=== PATIENT | female | born 1965 | race Caucasian/White ===

== ENCOUNTER 2018-03-30 12:41 | Inpatient (IN) ==
[2018-03-30] MEDS ORDERED: Ethanol\\Acetic Acid\\Na Ace\\Ben 1,000 ML IRRIG.SOLN IR ONE (12:54)
--- NOTE | 2018-03-30 13:12 | Anesthesia Evaluation PreOp ---
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 History: TIA (09/2017) Other Medical History: Diabetes Type II, Other (obesity BMI 43) Anesthesia History: No Prior Anesthetic Complications, Past Anesthesia (GB, Appy ,T&A, CTR, Partial Hyst) : No Alcohol Use: none Drug use: none Medications and Allergies 3 Allergy/AdvReac Type Severity Reaction Status Date / Time Hydromorphone [From Dilaudid] Allergy Difficulty Verified 03/30/18 13:14 Breathing promethazine [From Phenergan] AdvReac Seizure Verified 03/30/18 13:14 [id number] Reductase AdvReac Cramping Verified 03/30/18 13:14 Inhibitor of the [Statins] Muscles - Meds/Allergy Pre-op Review Medications Reviewed: Yes Allergies Reviewed: Yes Anesthesia Results - Labs Laboratory Tests 03/02/18 03/02/18 03/20/18 12:35 12:35 14:31 WBC Hgb Hct Plt Count PT 11.2 INR 1.0 APTT 32.7 Sodium 138 Potassium 4.4 Chloride 105 Carbon Dioxide 26 BUN 14 Creatinine 0.66 Est GFR (Non-Af Amer) > 60 Hemoglobin A1c 8.3 H 03/20/18 14:31 WBC 7.9 Hgb 12.3 Hct 38.0 Plt Count 242 PT INR APTT Sodium Potassium Chloride Carbon Dioxide BUN Creatinine Est GFR (Non-Af Amer) Hemoglobin A1c - Imaging EKG: report reviewed, image reviewed Additional studies: Echo 09/2017 Impressions: LVEF 60%. Normal LV chamber size and function. Mild concentric left ventricular hypertrophy. Moderate left ventricular diastolic dysfunction. Normal right ventricular structure and function. Unable to estimate RVSP due to lack of TR jet. No significant valvular dysfunction Anesthesia Exam Vital Signs/O2 Sat/Glucose, Most Recent Temp Pulse Resp BP Pulse Ox 98.4 F 66 18 124/79 96 03/30/18 12:59 03/30/18 12:59 03/30/18 12:59 03/30/18 12:59 03/30/18 12:59 Blood Glucose* 139 Height: 1.73 Weight: 130 kg NPO (# of Hours): > 8 hrs - HEENT Pupil (Motor): Pupils equal Mallampati: II Teeth: Normal Oral Opening: Greater than 3 - PLATE GLASS GRINDER PLATE GLASS GRINDER Motor: Normal RUE, Normal LUE, Normal RLE, Normal LLE, Normal Face PLATE GLASS GRINDER Sensory: Normal: RUE, LUE, RLE, LLE, Face - Cardiac Rhythm: Regular Murmur: None - Pulmonary Breath Sounds: bilateral Clear Respiratory Effort: Symmetrical Anesthesia Assess/Plan ASA Score: 3 Modified [place] Scale for Level of Consciousness: Cooperative, oriented, and tranquil Anesthetic Plan: Regional (spinal and adductor canal block), MAC Monitoring Plan: Standard Monitors Recovery Plan: PACU
[2018-03-30] MEDS ORDERED: CeFAZolin Syr 3,000MG/30 ML 3,000 MG/30 ML SYRINGE IVPB ONE (13:13)
[2018-03-30] MEDS ORDERED: Ringers Solution, Lactated 1,000 ML IVC SCH (13:15)
[2018-03-30] MEDS ORDERED: Lidocaine -MPF 1% 2 ML VIAL ID ONE (13:18)
[2018-03-30] MEDS ORDERED: Famotidine 20 MG/2 ML VIAL IVP ONE (13:22)
[2018-03-30] MEDS ORDERED: Acetaminophen IV 1,000 MG/100 ML INFUS..BTL IVPB ONE (13:22)
[2018-03-30] MEDS ORDERED: LIDOCAINE 1% PF 2 ML AMPUL ONE (13:23)
[2018-03-30] MEDS ORDERED: ROPIVACAINE HCL/PF 0.5% 30 ML VIAL ONE (13:34)
[2018-03-30] MEDS ORDERED: Bupivacaine/Clonidine Syringe 1 EACH SYRINGE ONE (13:34)
[2018-03-30] MEDS ORDERED: Morphine Sulfate/PF 5mg/10mL Vial ONE (13:35)
[2018-03-30] MEDS ORDERED: *HR* FentaNYL (PF) 100 MCG/2 ML VIAL ONE (13:41)
[2018-03-30] MEDS ORDERED: *HR* Midazolam HCl 2 MG/2 ML VIAL ONE (13:41)
[2018-03-30] MEDS ORDERED: *HR* Propofol 200 MG/20 ML VIAL IVP ONE (13:42)
[2018-03-30] MEDS ORDERED: Propofol 500 MG/50 ML INFUS..BTL ONE ×2 (13:42→15:41)
[2018-03-30] MEDS ORDERED: Dexamethasone 4 MG/ML VIAL ONE (14:03)
[2018-03-30] MEDS ORDERED: Ondansetron 4 MG/2 ML VIAL ONE (14:03)
--- NOTE | 2018-03-30 14:06 | History & Physical Report ---
Date of Encounter: 03/30/18 Time of Encounter: 14:05 24 Hour HP Update - Instructions Instructions: If the History and Physical is less than 30 days old and was completed prior to A.M. admission and or procedure and has NOT been updated on calendar day of procedure please complete this update prior to performing procedure. - Update Patient reports changes in Medical Condition: No Changes in examination, assessment, or condition: No Changes in Medication: No Preop tests/diagnostics Reviewed: Yes Surgery Remains Indicated: Yes Consent for Planned Operative Procedure(s) Verified: Yes - Pre-Operative Checklist Preoperative Checklist Indicated: No Prophylactic Antibiotic Ordered: Yes Is VTE Prophylaxis Indicated?: Yes
[2018-03-30] MEDS ORDERED: Lidocaine -MPF 1% 5 ML AMPUL ONE ×2 (14:19→14:32)
[2018-03-30] MEDS ORDERED: EPHEDrine 50 MG/ML VIAL ONE (15:04)
--- NOTE | 2018-03-30 15:32 | Anesthesia Procedures ---
Date of Encounter: 03/30/18 Time of Encounter: 14:09 Procedures: Anesthesia - Epidural/Spinal Patient examined: Yes Consent Obtained: Yes Supplemental Oxygen: Nasal Cannula Supplemental Oxygen Rate (L/min): 2 Sedation: Versed (mg): 2 Sedation: Fentanyl (mcg): 50 Site Prep: Aseptic Technique, Sterile prep and drape, Povidone-Iodine 1% Patient position: upright Local Anesthetic: Lidocaine 1% Amount of Local Anesthetic used: 6 Interspace Used: L3-L4 Blood: No CSF: Yes Paresthesia: No Spinal Needle Gauge: 22 Spinal Dose: 3ml of 0.5% Bupivacaine with NaCl Procedure: Spinal completed via sterile technique. 2 attempts noted. First attempt was at L4-L5, 3ml of 1% lidocaine used for local. Unable to access subarachnoid space. Second attempt was at L3-L4 with clear CSF noted. Aspiration negative for heme x3 during administration. Administration of 3ml of 0.5% PF Bupivicaine with NaCl in addition to 200mcg of duramorph into subarachnoid space. Pt tolerateed without difficulty. Vitals + FHT's: Vital Signs/O2 Sat/Glucose, Most Recent Temp Pulse Resp BP Pulse Ox 98.4 F 59 16 96/54 96 03/30/18 14:15 03/30/18 14:38 03/30/18 14:38 03/30/18 14:38 03/30/18 14:38 Blood Glucose* 139 - Nerve Block Procedure Date: 03/30/18 Time: 14:39 Allergies/Adv Reactions: Refer to Allergy list. Surgical Procedure: R Total Knee Arthroplasty Checklist: Correct Patient Identifier, Correct procedure, History checked Correct side: Right Blood Thinner: No Monitor Applied: EKG, BP, Pulse Oximetry Supplemental Oxygen via Nasal Cannula (L/min): 2 Sedation: Fentanyl (mcg): 50 Indication: Post Op Analgesia Pre-op Neuro Deficits: No Block Type: Other (Adductor Canal and IPACK Block) Catheter placed: No Sterile Technique: Yes Ultrasound used: Yes Anatomy identified: Yes Visual spread of Local: Yes Neuro Stimulation: No Blood on Needle Aspiration: No Smooth Injection of Local: Yes Pain with Injection of Local: No Prep: Chlorhexadine Needle: 21 x 100 mm Stimuplex Local: 0.25% Bupivicaine w/Clonidine 20 mcg/cc (20 ml administered for IPACK Block), Ropivacaine (20ml of 0.5% Ropivacaine administered with 8mg decadron for adductor canal block) Volume (cc): See above. Number of Attempts: 1 Complications: None/effective block Vitals: Vital Signs/O2 Sat/Glucose, Most Recent Temp Pulse Resp BP Pulse Ox 98.4 F 59 16 96/54 96 03/30/18 14:15 03/30/18 14:38 03/30/18 14:38 03/30/18 14:38 03/30/18 14:38 Blood Glucose* 139
[2018-03-30] MEDS ORDERED: *HR* Morphine 2 MG/ML SYRINGE IVP PRN (15:41)
[2018-03-30] MEDS ORDERED: Naloxone 0.4 MG/ML INJ IVP PRN ×2 (15:41→17:28)
[2018-03-30] MEDS ORDERED: Ondansetron 4 MG/2 ML VIAL IVP PRN ×2 (15:41→17:28)
--- NOTE | 2018-03-30 16:19 | Orthopedic Operative Note ---
Date of procedure: 03/30/18 Pre-op diagnosis: Right knee arthritis Post-op diagnosis: same Procedure: Procedure: Right robotic-assisted Total knee replacement Estimated blood loss: 200 cc Hardware: Metal and polyethylene replacement. [place] Femur: 4 Tibia: 4 PS insert: 11 Patella: 36 Exam Under anesthesia: 2 degree hyperextension 3 degree varus as calculated by the robot full flexion and no instability Procedural Notes: Grade 3 arthritic changes all 3 compartments. Operative procedure: The patient was brought to the operating room and placed on the operating room table. After general anesthesia was administered the operative knee was examined. Findings were noted in the exam under anesthesia. The operative extremity was prepped and draped in sterile surgical fashion. The patient received IV antibiotics prior to skin incision. A standard midline incision was made centered over the patella. The incision was made through the skin and subcutaneous tissue. A medial parapatellar tendon approach was performed. Care was taken to preserve tissue along the medial aspect of the patella. And to protect the patella tendon. The deep MCL was released off the medial tibia. The infra patella fat pad was excised. The patella was everted and cut was made at the level of the insertion of the quadriceps and patella tendon. The patella was sized to a 36 the guide was seated and the lug holes are drilled. Knee was brought into flexion. Patient noted to have Steinmann pins were placed in the tibia and the femur for the tibial and femoral arrays respectively. Checkpoints were also placed in the tibia and the femur for calculation purposes. The knee including the femur and the tibial registered. Osteophytes, ACL and PCL were excised at this point. Extension and flexion were assessed with a valgus stress components were adjusted on the computer to balance the knee. Femoral cuts were made first with robotic assistance, these included the anterior cut posterior cuts chamfer cuts. Tibial cut was then performed with robotic assistance as well. Bone fragments were removed, as well as the medial and lateral meniscus. The size 4 femoral guide was seated box cut was made lug holes are drilled. The size 4 tibial tray was seated and prepared with the fin cutter. Trial reduction with the 11 T Ilana revealed extension of 0 degree and 1 degree varus full flexion. No varus valgus instability. Trial reduction revealed excellent patella tracking. All trial components were removed all bony surfaces were irrigated. The Tibia was seated followed by the femur, The Ilana size 11 was seated and secured patella. Patient had similar findings for motion and stability. The knee was then irrigated out with 2 L of pulse irrigation. The extensor mechanism was closed with #2 FiberWire suture and #2 PDS suture. The subcutaneous tissue was then irrigated and closed deep with #1 PDS suture superficially with 0 PDS suture and skin was closed with zip tie The patient was then placed in a sterile dressing and a postoperative brace extubated and transferred to recovery room in stable condition. Anesthesia: GETA Surgeon: Fredrick Cruz Was there an miller head assistant wet process present: No Estimated blood loss (cc): 200 Condition: stable Disposition: PACU
--- NOTE | 2018-03-30 16:59 | Anesthesia Evaluation Post Op ---
Date of Encounter: 03/30/18 Time of Encounter: 16:55 - Vital Signs Vital Signs: Vital Signs - Last 8 Hours Temp Pulse Resp BP Pulse Ox 03/30/18 16:54 97.6 F 61 14 93/58 91 03/30/18 16:44 60 14 102/56 90 03/30/18 16:34 61 16 92/57 94 03/30/18 16:24 97.4 F L 64 16 93/60 95 03/30/18 14:38 59 16 96/54 96 03/30/18 14:28 92 16 112/67 03/30/18 14:15 98.4 F 66 18 124/79 96 03/30/18 14:10 60 16 120/84 97 03/30/18 12:59 98.4 F 66 18 124/79 96 Intake and Output 03/30/18 03/30/18 03/30/18 07:59 15:59 23:59 Output Total 200 / 200 Balance -200 / -200 Output: Estimated Blood Loss 200 / 200 Other: Weight 130.635 kg Blood Glucose* 139 136 Patient Weight 03/30/18 23:59 Weight 130.635 kg - Lungs Lungs: Clear Ascult./Percussion - Airway Airway: Non-obstructed - Cardiovascular Regular Rate, Baseline Rhythm - Mental Status Mental Status: Alert & Oriented, Answers Appropriately - Pain Pain Scale: 0 Pain Scale used: Numeric (1 - 10) - Nausea Vomiting Nausea Vomiting: Not Present - Hydration Hydration: Tolerates oral liquids, Ice chips - Discharge PostOp Status: Transfer Patient to floor
--- NOTE | 2018-03-30 17:01 | Physician Discharge Referral ---
<Jacqui Sabillon L - Last Filed: 03/30/18 16:59> Home Health/Hosp Referral Info Transfer to: Home Health Attending Provider: Provider in Charge Post Discharge: PCP - Diagnosis (1) Status post total knee replacement, right Priority: Primary Status: Acute (2) Arthritis of knee, right Priority: Primary Status: Acute (3) DMII (diabetes mellitus, type 2) Priority: Secondary Status: Chronic (4) HTN (hypertension) Priority: Secondary Status: Chronic (5) CAD (coronary artery disease) Priority: Secondary Status: Chronic (6) Asthma Priority: Secondary Status: Chronic (7) History of TIA (transient ischemic attack) Priority: Secondary Status: Chronic (8) SUSANA on CPAP Priority: Secondary Status: Chronic (9) Obesity Priority: Secondary Status: Chronic - Respiratory Orders None Smoking Cessation: Smoking cessation has been advised. For more information, call the [place] Tobacco Quit Line at 9-347-QQMX-NOW. - Diet/Nutrition Diet/Nutrition Orders: Regular - Activity Activity Orders: Up ad jacqueline, Ambulate - Services Needed Following services are medically necessary services: Nursing, Home Health Aide, Physical Therapy, Occupational Therapy Home Care Orders: Opsite dressing, leave intact until first post-operative visit. If dressing becomes >50% saturated, contact office, remove dressing and place appropriate dressing in its place. Do not allow for dressing to get wet. Zipline/[place] in place, plan to remove at post-operative day #14-16. Total Joint Precautions x 6 weeks Apply cold therapy wrap 3-6x/day for 20 minutes at a time. Encourage ambulation throughout the day Use Incentive spirometer 10x/hour. Elevate affected extremity above heart as tolerated. Brace: Wear knee immobilizer at night x 2 weeks.~ - Transfer Medications Home Medications: Aspirin 325 mg PO DAILY 03/30/18 [History] Aspirin Enteric Coated [Aspirin EC] 325 mg PO BID #20 tablet. 03/30/18 [Rx] Bumetanide [Bumex] 1 mg PO DAILY PRN 03/30/18 [History] Cyclobenzaprine [Flexeril] 10 mg PO TID PRN 03/30/18 [History] Escitalopram [Lexapro] 20 mg PO HS 03/30/18 [History] Fluticasone/Vilanterol [Breo Ellipta 200-25 Mcg INH] 1 puff IH DAILY PRN [History] Gabapentin [Neurontin] 1,200 mg PO TID 03/30/18 [History] GlipiZIDE [Glipizide Xl] 5 mg PO DAILY 03/30/18 [History] Ibuprofen [Motrin] 800 mg PO Q8HR PRN 03/30/18 [History] Ipratropium/Albuterol Neb [Duoneb] 3 ml IH Q6HR PRN 03/30/18 [History] Ipratropium/Albuterol Sulfate [Combivent Respimat Inhal [place]] 1 puff IH QID PRN 03/30/18 [History] Losartan Potassium [Cozaar] 100 mg PO DAILY 03/30/18 [History] Metformin HCl [Glucophage] 1,000 mg PO BID 03/30/18 [History] Metoprolol Tartrate [Lopressor] 50 mg PO BID 03/30/18 [History] Modafinil [Provigil] 200 mg PO QAM 03/30/18 [History] NIFEdipine [Nifedipine ER] 30 mg PO DAILY 03/30/18 [History] OxyCODONE Immed Rel [Roxicodone 5 MG] 5 mg PO Q6HR PRN 7 Days #28 tablet [Rx] Rosuvastatin Calcium [Crestor] 10 mg PO HS 03/30/18 [History] cloNIDine HCl [CloNIDine HCl] 0.1 mg PO BID 03/30/18 [History] Allergies/Adverse Reactions: 3 Allergy/AdvReac Type Severity Reaction Status Date / Time Hydromorphone [From Dilaudid] Allergy Difficulty Verified 03/30/18 13:14 Breathing promethazine [From Phenergan] AdvReac Seizure Verified 03/30/18 13:14 Lomtixa-Omg-Fkc Reductase AdvReac Cramping Verified 03/30/18 13:14 Inhibitor of the [Statins] Muscles Certification: Further, I certify that my clinical findings support that this patient is homebound (i.e. absences from home require considerable and taxing effort and are for medical reasons or cheondoism services or infrequently or short duration when for other reasons) because: Homebound Reason: Post-surgery restriction and or conditions limit ability to leave home Attestation: My signature below is to certify that this patient is under my care and that I, or nurse practitioner, or a physician's speech language pathology assistant working with me, has a face-to -face encounter with this patient. <Fredrick Cruz - Last Filed: 03/31/18 06:51> - Respiratory Orders Smoking Cessation: Smoking cessation has been advised. For more information, call the [place] Tobacco Quit Line at 9-587-EBHZ-NOW. Certification: Further, I certify that my clinical findings support that this patient is homebound (i.e. absences from home require considerable and taxing effort and are for medical reasons or cheondoism services or infrequently or short duration when for other reasons) because: Attestation: My signature below is to certify that this patient is under my care and that I, or nurse practitioner, or a physician's speech language pathology assistant working with me, has a face-to -face encounter with this patient.
[2018-03-30] MEDS ORDERED: Dextrose Gel 15 GM/37.5 ML TUBE PO PRN ×2 (17:28)
[2018-03-30] MEDS ORDERED: MOM Conc 10 ML UD.LIQ PO PRN (17:28)
[2018-03-30] MEDS ORDERED: (Ipratropium/Albuterol Sulfate [Combivent Respimat 20 IH PRN (17:28)
[2018-03-30] MEDS ORDERED: traMADol 50 MG TABLET PO PRN (17:28)
[2018-03-30] MEDS ORDERED: Bumetanide 1 MG TABLET PO PRN (17:28)
[2018-03-30] MEDS ORDERED: Sennosides 8.6 MG TABLET PO PRN (17:28)
[2018-03-30] MEDS ORDERED: Ipratropium/Albuterol Neb 3 ML IH PRN (17:28)
[2018-03-30] MEDS ORDERED: D5% in Water 1,000 ML IVC PRN (17:28)
[2018-03-30] MEDS ORDERED: Temazepam 15 MG CAPSULE PO PRN (17:28)
[2018-03-30] MEDS ORDERED: CeFAZolin Syr 3,000MG/30 ML 3,000 MG/30 ML SYRINGE IVPB SCH (17:28)
[2018-03-30] MEDS ORDERED: *HR* Dextrose 50 % in Water (Syg) 50 ML SYRINGE IVP PRN (17:28)
[2018-03-30] MEDS ORDERED: (Fluticasone/Vilanterol [Breo Ellipta 200-25 Mcg Inh] IH PRN (17:28)
[2018-03-30 17:30] LABS: Hematocrit 32.2 % (35.3-44.9); Hemoglobin 10.2 g/dL (11.5-15.4)
[2018-03-30] MEDS ORDERED: *HR* Enoxaparin 30 MG/0.3 ML SYRINGE SQ SCH (18:00)
[2018-03-30] MEDS: Gabapentin 400 MG CAPSULE PO SCH ×2 (18:57→19:31)
[2018-03-30] MEDS: *HR* Enoxaparin 30 MG/0.3 ML SYRINGE SQ SCH (19:23)
[2018-03-30] MEDS: *HR* Metformin 500 MG TABLET PO SCH (19:31)
[2018-03-30] MEDS: *HR* OxyCODONE Immed Rel 5 MG TABLET PO PRN (21:26)
[2018-03-30] MEDS: cloNIDine HCl 0.1 MG TABLET PO SCH (21:26)
[2018-03-30] MEDS: Insulin LISPRO 300 UNITS/3 ML VIAL SQ SCH (21:50)
[2018-03-30] MEDS: *HR* OxyCODONE/APAP 5/325 TABLET PO PRN (22:47)
[2018-03-30] MEDS: CeFAZolin Syr 3,000MG/30 ML 3,000 MG/30 ML SYRINGE IVPB SCH (22:48)
[2018-03-31] MEDS: *HR* OxyCODONE Immed Rel 5 MG TABLET PO PRN ×5 (01:39→23:52)
[2018-03-31] MEDS: Insulin LISPRO 300 UNITS/3 ML VIAL SQ SCH ×5 (03:30→20:48)
[2018-03-31] MEDS: *HR* OxyCODONE/APAP 5/325 TABLET PO PRN ×4 (03:59→20:47)
[2018-03-31 04:39] LABS: Hematocrit 31.4 % (35.3-44.9); Hemoglobin 9.8 g/dL (11.5-15.4)
[2018-03-31 05:05] LABS: BUN/Creatinine Ratio 25 (6-26); Blood Urea Nitrogen 21 mg/dL (6-20); Calcium 8.9 mg/dL (8.6-10.3); Carbon Dioxide 25 mEq/L (23-29); Chloride 101 mEq/L (98-107); Glucose 203 mg/dL (70-105); Osmolality,Calculated 289 (280-300); Potassium 4.6 mEq/L (3.5-5.1); Sodium 135 mEq/L (136-145); eGFR For African Americans > 60 (> 60); eGFR For Non-African Americans > 60 (> 60)
[2018-03-31] MEDS: *HR* Enoxaparin 30 MG/0.3 ML SYRINGE SQ SCH ×2 (05:39→17:18)
[2018-03-31] MEDS: CeFAZolin Syr 3,000MG/30 ML 3,000 MG/30 ML SYRINGE IVPB SCH (06:52)
--- NOTE | 2018-03-31 06:52 | Orthopedics Progress Note ---
Date of Encounter: 03/31/18 Time of Encounter: 06:51 Subjective Interval history: Patient was seen this morning doing well complains of knee pain. Afebrile vital signs stable. Operative extremity: Neurovascularly intact Dressing clean dry and intact Calves nontender Assessment and plan: Continue with postoperative care Hemoglobin 9.8 we will discharge today with pain under control. Objective Vital signs: Vital Signs Temp Pulse Resp BP Pulse Ox 03/31/18 06:43 98.4 F 68 18 159/83 96 03/31/18 03:46 98.9 F 84 17 146/77 94 03/30/18 23:23 98.6 F 86 16 121/75 93 03/30/18 20:40 98.8 F 81 18 116/70 97 03/30/18 19:41 97.8 F 76 15 123/73 95 03/30/18 18:44 97.7 F 79 16 112/71 92 03/30/18 18:04 97.6 F 54 16 102/66 91 03/30/18 17:40 97.4 F L 58 16 105/57 91 03/30/18 17:04 97.6 F 62 14 106/58 93 03/30/18 16:54 97.6 F 61 14 93/58 91 03/30/18 16:44 60 14 102/56 90 03/30/18 16:34 61 16 92/57 94 03/30/18 16:24 97.4 F L 64 16 93/60 95 03/30/18 14:38 59 16 96/54 96 03/30/18 14:28 92 16 112/67 03/30/18 14:15 98.4 F 66 18 124/79 96 03/30/18 14:10 60 16 120/84 97 03/30/18 12:59 98.4 F 66 18 124/79 96 Intake and Output 03/30/18 03/30/18 03/31/18 15:59 23:59 07:59 Intake Total 350 / 350 600 / 600 Output Total 200 / 200 Balance 150 / 150 600 / 600 Intake: Oral 350 / 350 600 / 600 Output: Estimated Blood Loss 200 / 200 Other: # Voids 2 1 Weight 130.635 kg Blood Glucose* 139 260 159 - Labs CBC & BMP: 03/31/18 04:20 03/31/18 04:20 Labs: Abnormal lab results Hgb 9.8 g/dL (11.5-15.4) L 03/31/18 04:20 Hct 31.4 % (35.3-44.9) L 03/31/18 04:20 Sodium 135 mEq/L (136-145) L 03/31/18 04:20 BUN 21 mg/dL (6-20) H 03/31/18 04:20 Glucose 203 mg/dL (70-105) H 03/31/18 04:20 POC Glucose 139 mg/dL (70-99) H 03/30/18 12:57 - VTE Documentation of Mechanical Device: Venous foot pump, device Consult Discharge Plan - Plan Referrals: Josee Bledsoe, [employer] SYSTEM INSTALLER [Primary Care Provider] -
[2018-03-31] MEDS: *HR* Metformin 500 MG TABLET PO SCH ×2 (07:51→17:04)
[2018-03-31] MEDS: NIFEdipine XL (24 HR) 30 MG TAB.ER.24 PO SCH (07:51)
[2018-03-31] MEDS: Aspirin 325 MG TABLET PO SCH (07:51)
[2018-03-31] MEDS: *HR* GlipiZIDE XL (24 HR) 2.5 MG TABLET PO SCH (07:52)
[2018-03-31] MEDS: cloNIDine HCl 0.1 MG TABLET PO SCH ×2 (07:53→20:47)
[2018-03-31] MEDS: Gabapentin 400 MG CAPSULE PO SCH ×3 (07:53→20:47)
[2018-03-31] MEDS: Acetaminophen IV 1,000 MG/100 ML INFUS..BTL IVPB SCH ×4 (08:04→23:37)
[2018-03-31] MEDS: Ringers Solution, Lactated 1,000 ML IVC SCH (10:53)
--- NOTE | 2018-03-31 11:55 | Event Note ---
Date of Encounter: 03/31/18 Time of Encounter: 11:54 PCR - POD#1 - Right TKR 03/30 - REBEKAH PLACED She has significant skin breakdown and abrasions - underlying psoriasis. she has bactroban at home. Patient seen at bedside, without complaints. A&O x 3 Afebrile, vital signs stable. Labs reviewed. H/H - 9.8 - stable, asymptomatic 03/31: Sodium 135 Pain control: adequate but patient voices concerns for discharge - discussed in depth. Educated that if she needs to she can take 2 tablets q 6 hours of oxycodone for firt 12-24 hours while at home. Participating in PT. All questions and concerns addressed. Educated on use of incentive spirometer. Encouraged ambulation and proper hydration. Patient educated on post-operative restrictions and post-operative care. Assessment and plan: Continue with postoperative care Pain discussed - flexeril added, lidoderm will be added if needed Discharge plan: Home, discharge 04/01 with HH. .
--- NOTE | 2018-03-31 12:24 | Discharge Summary ---
Orders not resulted at time of discharge: Pending orders 03/30/18 13:22 US anesthesia pain block [US] Routine 03/30/18 15:20 Culture,Anaerobic [RM] Routine Culture,Wound [RM] Routine 03/30/18 15:37 Surgical Pathology [PTH] Routine 04/01/18 04:00 Basic Metabolic Panel AM 0400 Hemoglobin and Hematocrit [HEME] AM 0400 Date of Encounter: 04/03/18 Time of Encounter: 12:21 - Discharge Diagnosis (1) Status post total knee replacement, right Priority: Primary Status: Acute (2) Arthritis of knee, right Priority: Primary Status: Acute (3) DMII (diabetes mellitus, type 2) Priority: Secondary Status: Chronic Qualifiers: Diabetes mellitus long term care pharmacist insulin use: unspecified long term care pharmacist insulin use status Diabetes mellitus complication status: without complication Qualified Code(s): E11.9 - Type 2 diabetes mellitus without complications (4) HTN (hypertension) Priority: Secondary Status: Chronic Qualifiers: Hypertension type: essential hypertension Qualified Code(s): I10 - Essential (primary) hypertension (5) CAD (coronary artery disease) Priority: Secondary Status: Chronic Qualifiers: Coronary Disease-Associated Artery/Lesion type: unspecified vessel or lesion type [place] vs. transplanted heart: [place] heart Associated angina: without angina Qualified Code(s): I25.10 - Atherosclerotic heart disease of [place] coronary artery without angina pectoris (6) Asthma Priority: Secondary Status: Chronic Qualifiers: Asthma severity: unspecified severity Asthma persistence: unspecified Asthma complication type: uncomplicated Qualified Code(s): J45.909 - Unspecified asthma, uncomplicated (7) History of TIA (transient ischemic attack) Priority: Secondary Status: Chronic (8) SUSANA on CPAP Priority: Secondary Status: Chronic (9) Obesity Priority: Secondary Status: Chronic Qualifiers: Obesity type: due to excess calories Obesity classification: adult class 3 (BMI >= 40) Serious obesity comorbidity presence: without serious comorbidity Body mass index: BMI 40.0-44.9 Qualified Code(s): E66.01 - Morbid (severe) obesity due to excess calories; Z68.41 - Body mass index (BMI) 40.0-44.9, adult (10) Acute blood loss anemia Priority: Secondary Status: Acute Comments: H/H 04/01: 9.5/ - Stable. Asymptomatic. - Hospital Course Hospital course: Ms. Syed is a 52 year old female. Patient was POD#2 - Right TKR. She has an uneventful post-operative course. She was discharged in stable condition, back to baseline. - Time Spent with Patient Total time spent providing and/or coordinating discharge services: Less than 30 minutes - Discharge Medications Home Medications: Aspirin Enteric Coated [Aspirin EC] 325 mg PO BID #20 tablet. 03/30/18 [Rx] Bumetanide [Bumex] 1 mg PO DAILY PRN 03/30/18 [History] Cyclobenzaprine [Flexeril] 10 mg PO TID PRN 03/30/18 [History] Escitalopram [Lexapro] 20 mg PO HS 03/30/18 [History] Fluticasone/Vilanterol [Breo Ellipta 200-25 Mcg INH] 1 puff IH DAILY PRN [History] Gabapentin [Neurontin] 1,200 mg PO TID 03/30/18 [History] GlipiZIDE [Glipizide Xl] 5 mg PO DAILY 03/30/18 [History] Ibuprofen [Motrin] 800 mg PO Q8HR PRN 03/30/18 [History] Ipratropium/Albuterol Neb [Duoneb] 3 ml IH Q6HR PRN 03/30/18 [History] Ipratropium/Albuterol Sulfate [Combivent Respimat 20-100 Mcg] 1 puff IH QID PRN 03/30/18 [History] Losartan Potassium [Cozaar] 100 mg PO DAILY 03/30/18 [History] Metformin HCl [Glucophage] 1,000 mg PO BID 03/30/18 [History] Metoprolol Tartrate [Lopressor] 50 mg PO BID 03/30/18 [History] Modafinil [Provigil] 200 mg PO QAM 03/30/18 [History] NIFEdipine [Nifedipine ER] 30 mg PO DAILY 03/30/18 [History] OxyCODONE Immed Rel [Roxicodone 5 MG] 5 mg PO Q6HR PRN 7 Days #28 tablet [Rx] Rosuvastatin Calcium [Crestor] 10 mg PO HS 03/30/18 [History] cloNIDine HCl [CloNIDine HCl] 0.1 mg PO BID 03/30/18 [History] Allergies/Adverse Reactions: 3 Allergy/AdvReac Type Severity Reaction Status Date / Time Hydromorphone [From Dilaudid] Allergy Difficulty Verified 03/30/18 13:14 Breathing promethazine [From Phenergan] AdvReac Seizure Verified 03/30/18 13:14 Jxoxnsu-Dkd-Amp Reductase AdvReac Cramping Verified 03/30/18 13:14 Inhibitor of the [Statins] Muscles Date of admission: 03/30/18 18:12 Primary care physician: Josee Bledsoe CNP Consults: 03/30/18 17:28 Consult to Occupational Therapy [CONS] Routine Comment: Evaluate, develop and implement POC Reason for Consult: post knee surgery Does patient have active BEDREST order?: No Is patient medically & hemodynamically stable?: Yes Consult to Orthopedic Navigator [CONS] [CONS] Routine Consult to Physical Therapy [CONS] Routine Comment: Evaluate, develop and impliment POC Reason for Consult: post knee surgery Does patient have active BEDREST order?: No Is patient medically & hemodynamically stable?: Yes Consult to Public Works Inspector [CONS] Routine Reason for SW Consult: post op joint replacement RT Post Op Consult [CONS] Routine Anticipated date of discharge: 03/31/18 (04/01 pending pain) - VTE Documentation of Mechanical Device: Venous foot pump, device Labs on day of discharge: Labs from last 24 hours 03/31/18 03/31/18 03/30/18 04:20 04:20 17:09 Hgb 9.8 L 10.2 L Hct 31.4 L 32.2 L Sodium 135 L Potassium 4.6 Chloride 101 Carbon Dioxide 25 BUN 21 H Creatinine 0.83 Est GFR ( Amer) > 60 Est GFR (Non-Af Amer) > 60 BUN/Creatinine Ratio 25 Glucose 203 H POC Glucose Calculated Osmolality 289 Calcium 8.9 03/30/18 12:57 Hgb Hct Sodium Potassium Chloride Carbon Dioxide BUN Creatinine Est GFR ( Amer) Est GFR (Non-Af Amer) BUN/Creatinine Ratio Glucose POC Glucose 139 H Calculated Osmolality Calcium - Impressions ITS Impressions Knee X-Ray 03/30/18 12:58 IMPRESSION: 1. Status post total right knee arthroplasty. 2. No hardware failure or fracture. 3. No unexpected retained radiopaque foreign body. 4. Diffuse edema about the knee. Overlying surgical skin closure nhi. D/ / Mejia Dawson / Mejia Dawson Interpreting Provider: Mejia Dawson - Patient Status Disposition: Home Health Service Condition: Good Functional capacity at discharge: uses cane/walker Overall status at discharge: patient is back to baseline - Discharge Instructions Instructions: Asthma (DC), Total Knee Replacement (DC), Diabetes Mellitus Type 2 in Adults (DC), Chronic Hypertension (DC) Follow Up With: Fredrick Cruz MD [Partnered Physician] - 04/06/18 1:15 pm (You will be seeing Jacqui Burak this visit.) Josee Bledsoe CNP [Primary Care Provider] - Additional Instructions: Discharge Instructions: Total Knee Replacement Please call [facility] ([phone]), your Primary Care Physician, or report to the Emergency Room if you have any of the following symptoms: Nausea, vomiting, fever greater that 101.5, swelling, chest pain, shortness of breath, increased pain/redness/drainage/odor for your incision site, numbness/ tingling, or any other concerning symptoms. ACTIVITY:Weight-bearing as tolerated. You may progress off support (crutches or walker) as tolerated. MEDICATIONS: Upon discharge resume your home medications. Take all the medications as prescribed. Take a stool softener if taking narcotic pain medications. Stool softeners are only effective if you drink enough fluids. Drink 6-8 glass of water or fluids a day, unless this is not allowed for another health problem. Despite using stool softeners, if you haven't had a bowel movement in 3 days, please switch to a gentle laxative. Gentle laxatives are sold over the counter. You should have a bowel movement within 24 hours, if not call the office. You will be discharged from the hospital with a prescription for pain medication. You are encouraged to decrease the use of narcotic pain medication as tolerated. Should you require a refill, please call the office. [facility] prescribes narcotic pain medication for only 4-6 weeks after surgery. If you require pain medication beyond this time period, you may be referred to your Primary Care Physician or to the Pain Clinic for further evaluation. Plan ahead for refills on pain medication as many narcotics either need to be picked up at the office or mailed. It is best to call 48-72 hours in advance of needing a prescription refill so you don't run out of medication. To help control the post-operative pain, you may take NSAIDs (Aleve,Advil, Motrin, Ibuprofen, Naprosyn) or Tylenol as prescribed on the bottle in addition to the pain medication. ANTICOAGULATION (blood thinners): Continue your Aspirin, Lovenox or Coumadin as prescribed to help prevent a blood clot in the leg or in the lungs. As long as your incision remains dry and you tolerate the NSAIDs (Aleve, Advil, Motrin, ibuprofen, naprosyn), it is OK to use the NSAIDS while you are taking your anticoagulation medication. Should your incision start to drain, stop the NSAID and contact our office. Common symptoms of blood clot in the legs include: localized pain, swelling, calf tenderness, redness or discoloration of the skin. Blood clot in the lung symptoms include: shortness of breath, rapid pulse, sweating, and chest pain that worsens with deep breathing, coughing up blood, lightheadedness, feelings of anxiety. If you experience any of these symptoms notify your physician immediately, go to the emergency room, or if having trouble breathing, call 911. WOUND CARE: Leave the dressing on for 7 to 10days. You may change the dressing if it becomes saturated greater than 50%. Do not get the dressing wet at anytime. Wash your hands with antibacterial soap, rinse and dry prior to any wound care. If you have nhi the visiting nurse or rehab facility can remove the stapes 10-14 days after surgery and place steri-strips across the wound. Leave the steri-strips in place until they fall off on their won. You may let water from the shower run on top of the steri-strips. If you do not have a visiting nurse or rehab facility, you will need to return to the office at 10-14 days for the nhi to be removed. If you have itching or redness around the dressing call the office. FOLLOW-UP: Please follow up with your surgeon in the orthopedic clinic in 4 weeks from the day of surgery. If you have nhi that need to be removed, you will need to come back to the office in 10-14 days from the day of surgery. - Diet and Activity Activity: as per physical therapy
[2018-03-31] MEDS: Ketorolac 30 MG/ML VIAL IVP PRN (19:02)
[2018-04-01] MEDS: Ketorolac 30 MG/ML VIAL IVP PRN ×2 (03:26→11:32)
[2018-04-01 03:50] LABS: Hematocrit 28.6 % (35.3-44.9); Hemoglobin 9.5 g/dL (11.5-15.4)
[2018-04-01] MEDS: *HR* OxyCODONE/APAP 5/325 TABLET PO PRN ×2 (03:52→09:43)
[2018-04-01 04:09] LABS: BUN/Creatinine Ratio 28 (6-26); Blood Urea Nitrogen 23 mg/dL (6-20); Calcium 8.8 mg/dL (8.6-10.3); Carbon Dioxide 24 mEq/L (23-29); Chloride 103 mEq/L (98-107); Glucose 144 mg/dL (70-105); Osmolality,Calculated 288 (280-300); Potassium 3.9 mEq/L (3.5-5.1); Sodium 136 mEq/L (136-145); eGFR For African Americans > 60 (> 60); eGFR For Non-African Americans > 60 (> 60)
[2018-04-01] MEDS: Acetaminophen IV 1,000 MG/100 ML INFUS..BTL IVPB SCH (05:53)
[2018-04-01] MEDS: *HR* OxyCODONE Immed Rel 5 MG TABLET PO PRN (05:58)
[2018-04-01] MEDS: *HR* Enoxaparin 30 MG/0.3 ML SYRINGE SQ SCH (05:59)
[2018-04-01 06:55] VITALS: BP 114/60
[2018-04-01] MEDS: Ringers Solution, Lactated 1,000 ML IVC SCH ×2 (07:16→09:44)
[2018-04-01] MEDS: Aspirin 325 MG TABLET PO SCH (09:41)
[2018-04-01] MEDS: NIFEdipine XL (24 HR) 30 MG TAB.ER.24 PO SCH (09:41)
[2018-04-01] MEDS: cloNIDine HCl 0.1 MG TABLET PO SCH (09:42)
[2018-04-01] MEDS: *HR* Metformin 500 MG TABLET PO SCH (09:42)
[2018-04-01] MEDS: *HR* GlipiZIDE XL (24 HR) 2.5 MG TABLET PO SCH (09:42)
[2018-04-01] MEDS: Gabapentin 400 MG CAPSULE PO SCH (09:43)
[2018-04-01] MEDS: Insulin LISPRO 300 UNITS/3 ML VIAL SQ SCH (09:43)
== END 2018-04-01 11:48 | disposition home health service (06) | DRG 470 ==
LOC: SAMDAY 12:41 → 3NENU 18:12
PROVIDERS: ADMIT Orthopaedic Surgery; ATTEND Orthopaedic Surgery

== ENCOUNTER 2018-06-10 14:05 | Observation (INO) ==
[2018-06-10] MEDS ORDERED: Naloxone 0.4 MG/ML INJ IVP PRN (17:21)
[2018-06-10] MEDS ORDERED: Acetaminophen 325 MG TABLET PO PRN (17:21)
--- NOTE | 2018-06-10 17:40 | Internal Med History&Physical ---
Date of Encounter: 06/10/18 Time of Encounter: 16:30 Internal Medicine - H&P: HPI Chief complaint: Facial droop and shakes Admitted From: Emergency Dept Plans for Post Hospital Care: Home History of present illness: Ms. Syed is a 52 year old female patient with a history of prior TIA who presented to the ER with complaints of facial droop on the right and severe pain and heaviness in her lower extremities that occurred earlier this morning. She was taken to [place] [facility] and by then her symptoms subsided. However in the ER she again had developed facial droop to the right that again lasted for a brief spell. Reports that she had similar episode of TIA in September of this year. At that time she was transferred to [facility] and underwent workup for possible stroke. Most of her workup was negative and she was deemed as having had a TIA. She has been on 325 mg of aspirin since then. Neurology was consulted from the ER this time and they recommended starting her on IV heparin drip due to waxing and waning symptoms. At this time she does not have any facial droop anymore. She denies any weakness in her upper or lower extremities. She denies any chest pain palpitations. She denies any shortness of breath. No nausea or vomiting at this time. She did have nausea earlier today. Past Med Surg Social Fam HX - Past Medical History Attestation: Yes The following information was validated with the patient. Source: patient Medical history: arthritis, asthma, diabetes, GERD, hyperlipidemia, hypertension , other Additional medical history: sleep apnea Psychiatric history: anxiety, depression - Past Surgical History Surgical History: appendectomy, cholecystectomy, hysterectomy Additional surgical history: right knee replaced march 2018 - Social History Smoking Status: Former smoker Smokeless Tobacco Status: No Alcohol use: occasionally Drug use: none - Family History Mother Hx Family Cardiac Disorders: Yes (HTN) Hx Family Cancer: Yes (Ovarian) Hx Family Endocrine Disorder: Yes (DM Type 2) Father Hx Family Cardiac Disorders: Yes (HTN) Hx Family Cancer: Yes (lung) Internal Medicine - H&P: Meds Bumetanide [Bumex] 1 mg PO DAILY PRN 03/30/18 [History] Escitalopram [Lexapro] 20 mg PO HS 03/30/18 [History] Fluticasone/Vilanterol [Breo Ellipta 200-25 Mcg INH] 1 puff IH DAILY 03/30/18 [ History] Gabapentin [Neurontin] 1,200 mg PO TID 03/30/18 [History] GlipiZIDE [Glipizide Xl] 5 mg PO DAILY 03/30/18 [History] Ibuprofen [Motrin] 800 mg PO Q8HR 03/30/18 [History] Ipratropium/Albuterol Neb [Duoneb] 3 ml IH Q6HR PRN 03/30/18 [History] Losartan Potassium [Cozaar] 100 mg PO DAILY 03/30/18 [History] Metformin HCl [Glucophage] 1,000 mg PO BID 03/30/18 [History] Metoprolol Tartrate [Lopressor] 50 mg PO BID 03/30/18 [History] NIFEdipine [Nifedipine ER] 30 mg PO DAILY 03/30/18 [History] cloNIDine HCl [CloNIDine HCl] 0.1 mg PO BID 03/30/18 [History] Aspirin Enteric Coated [Aspirin EC] 325 mg PO HS 06/10/18 [History] Guaifenesin [Mucinex] 1,200 mg PO BID 06/10/18 [History] 3 Allergy/AdvReac Type Severity Reaction Status Date / Time Hydromorphone [From Dilaudid] Allergy Difficulty Verified 03/30/18 13:14 Breathing promethazine [From Phenergan] AdvReac Seizure Verified 03/30/18 13:14 Nfbtfjx-Tqs-Zlo Reductase AdvReac Cramping Verified 03/30/18 13:14 Inhibitor of the [Statins] Muscles Tizanidine [From Zanaflex] AdvReac Hallucinati Verified 06/10/18 12:55 ng All Systems PM: A 10-system review of systems was performed and is negative for pertinent findings except as documented above in the HPI. - Constitutional Constitutional: no chills, no fever(s), no night sweats - EENT Eyes: no change in vision, no discharge, no pain, no photophobia Ears: no ear discharge, no ear pain, no tinnitus Nose, mouth and throat: no dysphagia, no nasal discharge, no neck pain, no sore throat - Cardiovascular Cardiovascular ROS IM: no chest pain, no diaphoresis, no dyspnea, no lightheadedness, no palpitations, no syncope - Respiratory Respiratory: no cough, no dyspnea, no wheezing, no excessive phlegm production - Gastrointestinal Gastrointestinal: no abdominal pain, no diarrhea, no hematemesis, no hematochezia, no melena, no nausea, no vomiting - Genitourinary Genitourinary: no change in urinary stream, no dysuria, no flank pain, no hematuria - Musculoskeletal Musculoskeletal ROS IM: no numbness, no tingling - Integumentary Integumentary IM: no rash, no unusual bruising - Neurological Neurological ROS: other (facial droop), no confusion, no convulsions, no focal weakness, no numbness, no tingling, no tremor(s) - Hematologic/Lymphatic Hematologic/Lymphatic: no easy bruising - Constitutional Vitals: Temp Pulse Resp BP Pulse Ox 97.3 F L 52 17 129/79 98 06/10/18 16:55 06/10/18 16:55 06/10/18 16:55 06/10/18 16:55 06/10/18 16:55 General appearance: Present: cooperative, A&O X 3, pleasant, obese, answers questions appropriately Exam: . - Neck Neck exam general surgery: Present: supple, trachea midline. Absent: lymphadenopathy - Respiratory Respiratory exam: Present: CTAB. Absent: accessory muscle use, rales, rhonchi, wheezes - Cardiovascular Cardiovascular exam: Present: RRR, +S1, +S2. Absent: diastolic murmur, gallop, rubs, systolic murmur - GI/Abdominal GI/Abdominal exam: Present: normal bowel sounds, soft, no peritoneal signs. Absent: distended, tenderness - Extremities Exam Extremities exam: Present: warm, radial pulses palpable and symmetrical. Absent : calf tenderness, cyanotic, pedal edema - Neurological Exam Neurological exam: Present: CN II-XII intact, oriented X3, no focal deficits, strengths equal and symetr throughout. Absent: facial droop, speech deficit - Skin Additional comments: Psoriasis rash on all extremities. Internal Med - H&P Results - Labs Labs: WBC 5.8, hemoglobin 12.3, platelets 271, PT 11.4, INR 1. - Impressions CT scan of the head showed no acute abnormality. - Assessment and plan (1) TIA (transient ischemic attack) Current Visit: Yes Status: Acute Assessment and plan: Patient presenting with symptoms of right-sided facial droop that has been waxing and waning. Currently her symptoms have resolved. Patient started on IV heparin drip per neurology recommendations. Will consult neurology. Follow recommendations. Patient will most likely need MRI of the brain and MRA or CTA of the head and neck. Monitor with telemetry for any arrhythmia. Check A1c and lipid profile. Will also get a limited 2-D echocardiogram. (2) CAD (coronary artery disease) Current Visit: Yes Status: Chronic Assessment and plan: Continue aspirin, Crestor. Qualifiers: Coronary Disease-Associated Artery/Lesion type: [place] artery [place] vs. transplanted heart: [place] heart Associated angina: without angina Qualified Code(s): I25.10 - Atherosclerotic heart disease of [place] coronary artery without angina pectoris (3) DMII (diabetes mellitus, type 2) Current Visit: Yes Status: Chronic Assessment and plan: Monitor blood sugars. Sliding scale insulin. Qualifiers: Diabetes mellitus assistant terminal manager insulin use: without fdc use Diabetes mellitus complication status: without complication Qualified Code(s): E11.9 - Type 2 diabetes mellitus without complications (4) HTN (hypertension) Current Visit: Yes Status: Chronic Assessment and plan: monitor blood pressure. Resume home medications. Qualifiers: Hypertension type: essential hypertension Qualified Code(s): I10 - Essential (primary) hypertension (5) Seizure-like activity Current Visit: Yes Status: Acute Assessment and plan: Patient reported having seizure-like activity. We will place her on seizure precautions. Follow neurology consultation. - Time Spent With Patient Total time spent is greater than 50% in coordination of care (as documented) at patient's floor/unit and/or counseling patient:
[2018-06-10] MEDS ORDERED: Ipratropium/Albuterol Neb 3 ML IH PRN (17:43)
[2018-06-10] MEDS ORDERED: Bumetanide 1 MG TABLET PO PRN (17:43)
[2018-06-10] MEDS ORDERED: *HR* Heparin 5,000 UNIT/ML VIAL IVP PRN ×2 (17:46)
[2018-06-10] MEDS: Heparin 25,000 UNIT/500 ML D5W 25,000 UNIT/500 ML BAG IVC SCH (18:44)
[2018-06-10] MEDS: *HR* Metformin 500 MG TABLET PO SCH (20:53)
[2018-06-10] MEDS: cloNIDine HCl 0.1 MG TABLET PO SCH (20:53)
[2018-06-10] MEDS: Gabapentin 400 MG CAPSULE PO SCH (20:53)
[2018-06-11 04:40] LABS: Basophils % 0.6 %; Eosinophils # 0.5 K/mcL (0.0-0.6); Eosinophils % 7.1 %; Hematocrit 34.2 % (35.3-44.9); Hemoglobin 10.9 g/dL (11.5-15.4); Immature Granulocytes % 0.7 % (0-4); Lymphocytes # 2.3 K/mcL (0.6-4.6); Lymphocytes % 34.2 %; Mean Corpuscular HGB Conc 31.9 g/dL (31.6-35.5); Mean Corpuscular Hemoglobin 27.5 pg (28.0-33.3); Mean Corpuscular Volume 86.4 fL (83.0-100.0); Mean Platelet Volume 10.2 fL (9.4-12.4); Monocytes # 0.4 K/mcL (0.0-1.3); Monocytes % 5.7 %; Neutrophils # 3.5 K/mcL (1.6-8.9); Platelet Count 216 K/mcL (140-400); Red Blood Count 3.96 M/mcL (3.82-4.97); Red Cell Distribution Width 13.7 % (11.5-14.5); Segmented Neutrophils % 51.7 %
[2018-06-11 05:00] LABS: BUN/Creatinine Ratio 24 (6-26); Blood Urea Nitrogen 16 mg/dL (6-20); Carbon Dioxide 25 mEq/L (23-29); Chloride 107 mEq/L (98-107); Chol/HDL Ratio 7.5 (0-4.9); Cholesterol 149 mg/dL (< 200); Glucose 136 mg/dL (70-105); HDL Cholesterol 20 mg/dL (40-59); LDL Cholesterol,Calculated 69 mg/dL (0-99); Osmolality,Calculated 291 (280-300); Potassium 3.7 mEq/L (3.5-5.1); Sodium 139 mEq/L (136-145); Triglycerides 298 mg/dL (< 150); eGFR For Non-African Americans > 60 (> 60)
[2018-06-11 07:04] VITALS: BP 164/96
[2018-06-11] MEDS: *HR* Metformin 500 MG TABLET PO SCH (08:01)
[2018-06-11] MEDS: Gabapentin 400 MG CAPSULE PO SCH (08:02)
[2018-06-11] MEDS: cloNIDine HCl 0.1 MG TABLET PO SCH (08:02)
[2018-06-11] MEDS: Heparin 25,000 UNIT/500 ML D5W 25,000 UNIT/500 ML BAG IVC SCH (08:10)
[2018-06-11] MEDS ORDERED: *HR* GlipiZIDE XL (24 HR) 2.5 MG TABLET PO SCH (09:00)
[2018-06-11] MEDS ORDERED: NIFEdipine XL (24 HR) 30 MG TAB.ER.24 PO SCH (09:00)
[2018-06-11] MEDS ORDERED: Ibuprofen 800 MG TABLET PO PRN (10:15)
--- NOTE | 2018-06-11 10:55 | Neurology - Consult Note ---
Date of Encounter: 06/11/18 Time of Encounter: 10:53 Assessment and Plan (1) TIA (transient ischemic attack) Current Visit: Yes Status: Acute Patient is a 52 year old woman with HTN, COS, CAD, DM, previous history of TIA who developed second episode of TIA characterized by transient right facial droop, this time actually occurred twice within on day concerning for crescdendo TIA. Patient again completed MRI of brain, MRA of neck and brain which showed no acute infarct and no critical large vessel stenosis. Patient has had similar episode where she had TIA work up at [facility]. She had TTE that was reported unremarkable. The associated shaking activity is likely not epileptic since she has no loss o consciousness and the shaking is involving whole body, no tongue biting and urinary incontinence reported. Discussed with her with treatment options, would discontinue Heparin drip and start her on Plavix 75mg daily and discontinue aspirin. Continue statin therapy. She may benefit from SEVERO but she at this time refused. She may also benefit from cardiology consultation for loop recording for possible cardiac dsyarrhythima but she also declined and would to take plavix and watch clinically. Patient can be discharged home from neurology perspective. She can follow up in neurology i few weeks after discharge Total time spend with the patient is approximately 50 minutes History of Present Illness Chief complaint: recurrent right facial droop HPI: Ms. Syed is a 52 year old female with PMH signfiicant for previous TIA 09/2017 , HTN, hyperlipidemia, SUSANA who presented to [facility] due to onset of right facial droop and right sided pain and paresthesia. Patient was transferred here yesterday for further evaluation and treatment. Patient developed acute onset of right facial droop at home. At the same she also developed wholebody weakness and had some whole body shaking and her throat is stuck. She feels this was a seizure and 'connected to the TIA'. She denies limb weakness though. She went to ER at [facility] for further evaluation. Her symptoms had resolved by the time she arrived ER at [facility] but again developed an episode of right facial droop witnessed by the ER physician so it was thought that she has been having crescendo TIA and suggested herapin drip and transfer here for further evaluation and treatment. She has had similar event 09/2017 and she was evaluated at [facility]. Had stroke work up including carotid artery, CTA of neck and head and TTE. These studies reportedly are unremarkable except on CTA of neck and head showing ' Atherosclerotic plaque with mild to moderate multifocal stenoses of thecavernous and supraclinoid internal carotid arteries.' She has no history of cardiac arrhythmia. She has no history of atrial fibrillation. She has been taking aspirin daily Past Med Surg Social Fam HX - Past Medical History Medical history: arthritis, asthma, diabetes, GERD, hyperlipidemia, hypertension , other Additional medical history: sleep apnea Psychiatric history: anxiety, depression - Past Surgical History Surgical History: appendectomy, cholecystectomy, hysterectomy Additional surgical history: right knee replaced march 2018 - Social History Smoking Status: Former smoker Smokeless Tobacco Status: No Alcohol use: occasionally Drug use: none - Family History Mother Hx Family Cardiac Disorders: Yes (HTN) Hx Family Cancer: Yes (Ovarian) Hx Family Endocrine Disorder: Yes (DM Type 2) Father Hx Family Cardiac Disorders: Yes (HTN) Hx Family Cancer: Yes (lung) Medications and Allergies Bumetanide [Bumex] 1 mg PO DAILY PRN 03/30/18 [History] Escitalopram [Lexapro] 20 mg PO HS 03/30/18 [History] Fluticasone/Vilanterol [Breo Ellipta 200-25 Mcg INH] 1 puff IH DAILY 03/30/18 [ History] Gabapentin [Neurontin] 1,200 mg PO TID 03/30/18 [History] GlipiZIDE [Glipizide Xl] 5 mg PO DAILY 03/30/18 [History] Ibuprofen [Motrin] 800 mg PO Q8HR 03/30/18 [History] Ipratropium/Albuterol Neb [Duoneb] 3 ml IH Q6HR PRN 03/30/18 [History] Losartan Potassium [Cozaar] 100 mg PO DAILY 03/30/18 [History] Metformin HCl [Glucophage] 1,000 mg PO BID 03/30/18 [History] Metoprolol Tartrate [Lopressor] 50 mg PO BID 03/30/18 [History] NIFEdipine [Nifedipine ER] 30 mg PO DAILY 03/30/18 [History] cloNIDine HCl [CloNIDine HCl] 0.1 mg PO BID 03/30/18 [History] Aspirin Enteric Coated [Aspirin EC] 325 mg PO HS 06/10/18 [History] Guaifenesin [Mucinex] 1,200 mg PO BID 06/10/18 [History] Ipratropium/Albuterol Sulfate [Combivent Respimat Inhal [place]] 1 puff IH QID PRN 06/11/18 [History] Modafinil [Provigil] 200 mg PO QAM 06/11/18 [History] Rosuvastatin Calcium [Crestor] 10 mg PO HS 06/11/18 [History] Tizanidine HCl 4 mg PO TID 06/11/18 [History] 3 Allergy/AdvReac Type Severity Reaction Status Date / Time Hydromorphone [From Dilaudid] Allergy Difficulty Verified 03/30/18 13:14 Breathing promethazine [From Phenergan] AdvReac Seizure Verified 03/30/18 13:14 Aclfuoi-Ank-Vzb Reductase AdvReac Cramping Verified 03/30/18 13:14 Inhibitor of the [Statins] Muscles Tizanidine [From Zanaflex] AdvReac Hallucinati Verified 06/10/18 12:55 ng All Systems: The remainder of the systems were reviewed and are negative Physical Examination - Vital Signs Vital Signs: Initial Vital Signs Temp Pulse Resp BP Pulse Ox 97.3 F L 52 17 129/79 98 06/10/18 16:55 06/10/18 16:55 06/10/18 16:55 06/10/18 16:55 06/10/18 16:55 Results - Laboratory Findings CBC and BMP: 06/11/18 04:11 06/11/18 04:11 Abnormal lab findings: Abnormal lab results Hgb 10.9 g/dL (11.5-15.4) L 06/11/18 04:11 Hct 34.2 % (35.3-44.9) L 06/11/18 04:11 MCH 27.5 pg (28.0-33.3) L 06/11/18 04:11 Glucose 136 mg/dL (70-105) H 06/11/18 04:11 Triglycerides 298 mg/dL (< 150) H 06/11/18 04:11 VLDL Cholesterol, Calc 60 mg/dL (< 31) H 06/11/18 04:11 HDL Cholesterol 20 mg/dL (40-59) L 06/11/18 04:11 Cholesterol/HDL Ratio 7.5 (0-4.9) H 06/11/18 04:11 - Diagnostic Findings Additional findings: EXAMINATION: MRI OF THE BRAIN WITHOUT CONTRAST; MRA OF THE NECK WITHOUT CONTRAST; MRA OF THE HEAD WITHOUT CONTRAST 06/10/2018 8:23 pm TECHNIQUE: Multiplanar multisequence MRI of the brain was performed without the administration of intravenous contrast.; Multiplanar multisequence MRA of the neck was performed without the administration of intravenous contrast. Stenosis of the internal carotid arteries measured using NASCET criteria.; MRA of the head was performed utilizing [id number] imaging with MIP images. No intravenous contrast was administered. COMPARISON: 08/03/2013 HISTORY: ORDERING SYSTEM PROVIDED HISTORY: TIA FINDINGS: Examination was degraded by patient motion. MRI BRAIN: INTRACRANIAL STRUCTURES/VENTRICLES: There is no acute infarct. Few scattered nonspecific T2 hyperintense white matter lesions. No mass effect or midline shift. No evidence of an acute intracranial hemorrhage. The ventricles and sulci are normal in size and configuration. The sellar/suprasellar regions appear unremarkable. The normal signal voids within the major intracranial vessels appear maintained. The hippocampi are symmetric in size and signal intensity. ORBITS: The visualized portion of the orbits demonstrate no acute abnormality. SINUSES: Nonspecific right mastoid opacification. No significant left mastoid opacification. No significant paranasal sinus disease. BONES/SOFT TISSUES: The visualized upper cervical spine appears grossly unremarkable. MRA NECK: AORTIC ARCH/GREAT VESSELS: The vessel origins are not well seen. CAROTID ARTERIES: The common carotid arteries are normal in appearance without evidence of a flow limiting stenosis. The internal carotid arteries are normal in appearance without evidence of a flow limiting stenosis by NASCET criteria. VERTEBRAL ARTERIES: No high-grade stenosis of focal occlusion involving the cervical segment of the vertebral arteries. The left vertebral artery is dominant. MRA HEAD: ANTERIOR CIRCULATION: The internal carotid arteries are normal in course and caliber without focal stenosis. The anterior cerebral and middle cerebral arteries demonstrate no focal stenosis. No sizable aneurysm. POSTERIOR CIRCULATION: The posterior cerebral arteries demonstrate no focal stenosis. The vertebral and basilar arteries appear unremarkable. No sizable aneurysm. MR/MR head/brain wo con IMPRESSION: No acute infarct, intracranial hemorrhage, or significant mass effect. Mild chronic ischemic white matter disease. No high-grade stenosis or focal occlusion involving the intracranial vasculature or cervical vasculature. No evidence of sizable intracranial aneurysm within limitation of this motion degraded examination. D/ / 06/10/2018 20:55:26 Cezar Aguilar MD / chacorta Interpreting Provider: Cezar Aguilar MD MRI OF THE BRAIN WITHOUT CONTRAST; MRA OF THE NECK WITHOUT CONTRAST; MRA OF THE HEAD WITHOUT CONTRAST 06/10/2018 8:23 pm TECHNIQUE: Multiplanar multisequence MRI of the brain was performed without the administration of intravenous contrast.; Multiplanar multisequence MRA of the neck was performed without the administration of intravenous contrast. Stenosis of the internal carotid arteries measured using NASCET criteria.; MRA of the head was performed utilizing [id number] imaging with MIP images. No intravenous contrast was administered. COMPARISON: 08/03/2013 HISTORY: ORDERING SYSTEM PROVIDED HISTORY: TIA FINDINGS: Examination was degraded by patient motion. MRI BRAIN: INTRACRANIAL STRUCTURES/VENTRICLES: There is no acute infarct. Few scattered nonspecific T2 hyperintense white matter lesions. No mass effect or midline shift. No evidence of an acute intracranial hemorrhage. The ventricles and sulci are normal in size and configuration. The sellar/suprasellar regions appear unremarkable. The normal signal voids within the major intracranial vessels appear maintained. The hippocampi are symmetric in size and signal intensity. ORBITS: The visualized portion of the orbits demonstrate no acute abnormality. SINUSES: Nonspecific right mastoid opacification. No significant left mastoid opacification. No significant paranasal sinus disease. BONES/SOFT TISSUES: The visualized upper cervical spine appears grossly unremarkable. MRA NECK: AORTIC ARCH/GREAT VESSELS: The vessel origins are not well seen. CAROTID ARTERIES: The common carotid arteries are normal in appearance without evidence of a flow limiting stenosis. The internal carotid arteries are normal in appearance without evidence of a flow limiting stenosis by NASCET criteria. VERTEBRAL ARTERIES: No high-grade stenosis of focal occlusion involving the cervical segment of the vertebral arteries. The left vertebral artery is dominant. MRA HEAD: ANTERIOR CIRCULATION: The internal carotid arteries are normal in course and caliber without focal stenosis. The anterior cerebral and middle cerebral arteries demonstrate no focal stenosis. No sizable aneurysm. POSTERIOR CIRCULATION: The posterior cerebral arteries demonstrate no focal stenosis. The vertebral and basilar arteries appear unremarkable. No sizable aneurysm. MR/MR angio neck wo con IMPRESSION: No acute infarct, intracranial hemorrhage, or significant mass effect. Mild chronic ischemic white matter disease. No high-grade stenosis or focal occlusion involving the intracranial vasculature or cervical vasculature. No evidence of sizable intracranial aneurysm within limitation of this motion degraded examination. D/ / 06/10/2018 20:55:26 Cezar Aguilar MD / chacorta Interpreting Provider: Cezar Aguilar MD Consult Discharge Plan - Plan Referrals: Josee Bledsoe, ROBBIN [Primary Care Provider] -
--- NOTE | 2018-06-11 11:42 | Discharge Summary ---
- NOTES TO OUTPATIENT PROVIDER Notes to Outpatient Provider: Patient hospitalized with possible TIA-like symptoms and seizure-like activity. She was monitored per night stroke scale and did not have any further episodes since coming here. She was also started on IV heparin initially per neurology recommendations. Her symptoms have now resolved. She is stable to be discharged home. Neurology recommends switching her from aspirin to Plavix and continuing statin. Patient reports that she has muscle cramps with statins if she takes them every day. She is willing to try Crestor for now and has been placed on this medication which she will take every other day. She will follow up with neurology after discharge for further management. Per neurological evaluation, no indication for antiseizure medications at this time. Date of Encounter: 06/11/18 Time of Encounter: 11:38 - Discharge Diagnosis (1) TIA (transient ischemic attack) Priority: Primary Status: Resolved (2) CAD (coronary artery disease) Priority: Secondary Status: Chronic Qualifiers: Coronary Disease-Associated Artery/Lesion type: [place] artery [place] vs. transplanted heart: [place] heart Associated angina: without angina Qualified Code(s): I25.10 - Atherosclerotic heart disease of [place] coronary artery without angina pectoris (3) DMII (diabetes mellitus, type 2) Priority: Secondary Status: Chronic Qualifiers: Diabetes mellitus termite helper insulin use: without skilled nursing use Diabetes mellitus complication status: without complication Qualified Code(s): E11.9 - Type 2 diabetes mellitus without complications (4) HTN (hypertension) Priority: Secondary Status: Chronic Qualifiers: Hypertension type: essential hypertension Qualified Code(s): I10 - Essential (primary) hypertension (5) Seizure-like activity Priority: Secondary Status: Acute Hospital course: Ms. Syed is a 52 year old female Patient with a history of hypertension, diabetes and prior TIA-like episode who who was hospitalized with possible TIA- like symptoms and seizure-like activity. She was monitored per night stroke scale and did not have any further episodes since coming here. She was also started on IV heparin initially per neurology recommendations. Her symptoms have now resolved. She is stable to be discharged home. Neurology recommends switching her from aspirin to Plavix and continuing statin. Patient reports that she has muscle cramps with statins if she takes them every day. She is willing to try Crestor for now and has been placed on this medication which she will take every other day. She will follow up with neurology after discharge for further management. Per neurological evaluation, no indication for antiseizure medications at this time. Discharge discussed with: patient, nurse - Time Spent with Patient Total time spent providing and/or coordinating discharge services: Less than 30 minutes (25 min) - Discharge Medications Prescriptions: Clopidogrel [Plavix] 75 mg PO DAILY #30 tablet Home Medications: Bumetanide [Bumex] 1 mg PO DAILY PRN 03/30/18 [History] Escitalopram [Lexapro] 20 mg PO HS 03/30/18 [History] Fluticasone/Vilanterol [Breo Ellipta 200-25 Mcg INH] 1 puff IH DAILY 03/30/18 [ History] Gabapentin [Neurontin] 1,200 mg PO TID 03/30/18 [History] GlipiZIDE [Glipizide Xl] 5 mg PO DAILY 03/30/18 [History] Ibuprofen [Motrin] 800 mg PO Q8HR 03/30/18 [History] Ipratropium/Albuterol Neb [Duoneb] 3 ml IH Q6HR PRN 03/30/18 [History] Losartan Potassium [Cozaar] 100 mg PO DAILY 03/30/18 [History] Metformin HCl [Glucophage] 1,000 mg PO BID 03/30/18 [History] Metoprolol Tartrate [Lopressor] 50 mg PO BID 03/30/18 [History] NIFEdipine [Nifedipine ER] 30 mg PO DAILY 03/30/18 [History] cloNIDine HCl [CloNIDine HCl] 0.1 mg PO BID 03/30/18 [History] Guaifenesin [Mucinex] 1,200 mg PO BID 06/10/18 [History] Clopidogrel [Plavix] 75 mg PO DAILY #30 tablet 06/11/18 [Rx] Ipratropium/Albuterol Sulfate [Combivent Respimat 20-100 Mcg] 1 puff IH QID PRN 06/11/18 [History] Modafinil [Provigil] 200 mg PO QAM 06/11/18 [History] Rosuvastatin Calcium [Crestor] 10 mg PO Q48H #30 06/11/18 [Rx] Tizanidine HCl 4 mg PO TID 06/11/18 [History] Allergies/Adverse Reactions: 3 Allergy/AdvReac Type Severity Reaction Status Date / Time Hydromorphone [From Dilaudid] Allergy Difficulty Verified 03/30/18 13:14 Breathing promethazine [From Phenergan] AdvReac Seizure Verified 03/30/18 13:14 Pubappp-Key-Ffp Reductase AdvReac Cramping Verified 03/30/18 13:14 Inhibitor of the [Statins] Muscles Tizanidine [From Zanaflex] AdvReac Hallucinati Verified 06/10/18 12:55 ng Date of admission: 06/10/18 15:30 Primary care physician: Josee Bledsoe CNP Consults: 06/10/18 18:31 Consult to Neurology [CONS] Routine Consulting Provider: Neurology [facility] Reason for Consult: TIA Time Notified: 18:31 Call Completed: Yes Discharging clinician: Myles Vilchis Anticipated date of discharge: 06/11/18 - Constitutional Vitals: Temp Pulse Resp BP Pulse Ox 98.0 F 75 15 164/96 96 06/11/18 07:01 06/11/18 07:01 06/11/18 07:01 06/11/18 07:01 06/11/18 07:01 General appearance: Present: cooperative, A&O X 3, pleasant, obese, answers questions appropriately Exam: . - Respiratory Respiratory exam: Present: CTAB. Absent: accessory muscle use, rales, rhonchi, wheezes - Cardiovascular Cardiovascular exam: Present: RRR, +S1, +S2. Absent: diastolic murmur, gallop, rubs, systolic murmur - Neurological Exam Neurological exam: Present: CN II-XII intact, oriented X3, no focal deficits, strengths equal and symetr throughout. Absent: facial droop, speech deficit - Patient Status Disposition: Home, Self-Care Condition: Good Functional capacity at discharge: independent ambulation Overall status at discharge: patient is progressing back to baseline - Discharge Instructions Instructions: Transient Ischemic Attack (DC), Diabetes Mellitus Type 2 in Adults (DC) Follow Up With: Josee Bledsoe CNP [Primary Care Provider] - (in 1-2 weeks This appointment was requested. They will call you with time and day. ) Ravindra Horn MD [Partnered Physician] - (2-3 weeks We web requested an appointment with Dr Llamas. The office with call you with appointment. ) Additional Instructions: Follow-up appointments: If there is not an appointment listed below, please call your physician and schedule a follow-up appointment. If you have congestive heart failure and your symptoms return, make an appointment with your physician. Medication List: Carry an up to date list of medications you are taking at all time. We have given you an updated medication list including any new medications that you have been prescribed. Please provide that list to your primary provider Symptoms: If your condition changes or you experience any of the following symptoms, notify your physician immediately: Unusual or worsening pain, fever, persistent nausea and vomiting, bleeding, increase in swelling (especially in your legs), sudden weight gain, extreme dizziness, chest pain, increased drainage or redness from a wound or incision. Go to the emergency department if you experience a problem with breathing. Weights: If you have a history of swelling or shortness of breath, weigh yourself daily and notify your physician if you have a weight gain of two or more pounds in one day or 5 or more pounds in a week. If you experience any of the warning signs for stroke: Sudden numbness or weakness of the face, arm or leg; especially on one side of the body, sudden confusion, trouble speaking or understanding, sudden trouble seeing in one or both eyes, sudden trouble walking, dizziness, loss of balance or coordination, sudden sever headache with no cause; Call 911 or go to the emergency room. Stroke is a medical emergency. Some risk factors for stroke: Age, cigarette smoking, diabetes, excessive alcohol consumption, family history , high blood pressure, overweight, physical inactivity, prior stroke, heart attack, diagnosis of carotid artery stenosis or other artery disease. If you smoke, STOP: Smoking or tobacco use significantly increases your risk of heart and lung disease. Your chance of disease greatly increases if you continue to smoke. For more information, call the [place] tobacco quit line for smoking cessation - QUIT-NOW ( ) - Diet and Activity Activity: increase activity as tolerated Diet: diabetic diet, low fat, low cholesterol, low salt diet
== END 2018-06-11 12:27 | disposition home or self-care (01) ==
LOC: 3BNU
PROVIDERS: ADMIT Internal Medicine; ATTEND Internal Medicine